=== PATIENT | female | born 1975 | race Two or more races ===

== ENCOUNTER 2021-12-05 11:51 | Emergency (ER) | payer SELFPAY ==
[~2021-12-05] VITALS: Ht 172.7 cm; Wt 104.3 kg
[2021-12-05] MEDS ORDERED: IBUP800T27 PO (16:29)
[2021-12-05] MEDS ORDERED: IBUPROFEN 800 MG TAB PO ONE (16:30)
[2021-12-05 17:44] VITALS: BP 122/74
== END 2021-12-05 18:45 | disposition home or self-care (01) ==
LOC: ER 11:51
DX: S46.911A Strain of unspecified muscle, fascia and tendon at shoulder and upper arm level, right arm, initial encounter (principal); I10 Essential (primary) hypertension; X58.XXXA Exposure to other specified factors, initial encounter; Y93.89 Activity, other specified; Y92.89 Other specified places as the place of occurrence of the external cause; Y99.8 Other external cause status
CPT/HCPCS: 73030; 73060

== ENCOUNTER 2023-11-10 14:02 | Emergency (ER) | payer MEDICAID, OTHER ==
[~2023-11-10] VITALS: Ht 172.7 cm; Wt 103.0 kg
[~2023-11-10 14:02] MED LIST: IBUP-1456 PO
[2023-11-10 15:22] VITALS: BP 112/63; PULSE 60; RESP 20; TEMP 97.6; O2SAT 98
[2023-11-10] MEDS ORDERED: IBUP-1456 PO (15:26)
[2023-11-10] MEDS ORDERED: BACL10TA PO (15:26)
[2023-11-10] MEDS ORDERED: HYDROcodone-ACET 5/325MG TAB PO ONE (15:30)
[2023-11-10] MEDS: KETOROLAC TROMETH 60MG/2ML VIAL IM ONE (15:42)
== END 2023-11-10 16:00 | disposition home or self-care (01) ==
LOC: ER 14:02
DX: S39.012A Strain of muscle, fascia and tendon of lower back, initial encounter (principal); I10 Essential (primary) hypertension; X58.XXXA Exposure to other specified factors, initial encounter; Y93.89 Activity, other specified; Y92.89 Other specified places as the place of occurrence of the external cause; Y99.8 Other external cause status
CPT/HCPCS: 96372; 99283; J1885

== ENCOUNTER 2025-03-23 00:17 | Emergency (ER) | payer BC, MEDICAID ==
[~2025-03-23] VITALS: Ht 172.7 cm; Wt 92.3 kg
[~2025-03-23 00:17] MED LIST changes: +BACL10TA PO
[2025-03-23 00:32] VITALS: BP 156/87; PULSE 65; RESP 22; TEMP 97.7; O2SAT 100
[2025-03-23] MEDS: HYDROcodone-ACET 10/325MG TAB PO ONE (00:45)
--- NOTE | 2025-03-23 00:48 | ED.PDOC ---
History of Present Illness HPI Comments 49-year-old female who came to ER for right lower dental pain for the past two days that has worsened over the past few hours. Patient states she had a dental procedure recently, currently complaining of dental pain at right lower pre/molar area. Claims there is an abscess. Self medicated with Ibuprofen 800 mg but offered no relief. Patient was hypertensive and mildly tachypneic at arrival. Chief Complaint: Tooth Pain Time Seen by MD: 00:46 Primary Care Provider: LETICIA Julio Notes: Nurses Notes Allergies: Coded Allergies: NO KNOWN ALLERGIES (Unverified , 12/05/21) Home Meds Active Scripts Baclofen (Baclofen) 10 Mg Tab, 10 MG PO BID, #20 TAB Prov:LARRY LACEY 11/10/23 Ibuprofen (Ibuprofen) 800 Mg Tab, 1 TAB PO TID, #30 TAB Prov:LARRY LACEY 11/10/23 Ibuprofen (Ibuprofen) 800 Mg Tab, 1 TAB PO TID PRN, #30 TAB 0 Refills Prov:LAVERN REED 12/05/21 Information Source: Patient, Spouse Mode of Arrival: Ambulatory Severity: Moderate Timing: Hours Duration: Since onset Prehospital treatment: None Past Medical History PAST MEDICAL HISTORY: HTN Past Medical History (Other): Recent dental procedures Surgical History: Denies all surgeries [employer] History: No Pertinent [employer] History Family History Family History: Reviewed,noncontributory to illness Social History Smoker: Non-Smoker Alcohol: Denies ETOH Use Drugs: Denies Drug Use Lives In: Home Constitutional: denies: chills, diaphoresis, fatigue, fever, malaise, sweats, weakness, others EENTM: reports: mouth pain (Right lower dental pain); denies: blurred vision, double vision, ear bleeding, ear discharge, ear drainage, ear pain, ear ringing, eye pain, eye redness, hearing loss, mouth swelling, nasal discharge, nose bleeding, nose congestion, nose pain, photophobia, tearing, throat pain, throat swelling, voice changes, others Respiratory: denies: cough, hemoptysis, orthopnea, SOB at rest, shortness of breath, SOB with excertion, stridor, wheezing, others Cardiovascular: denies: chest pain, dizzy spells, diaphoresis, Dyspnea on exertion, edema, irregular heart beat, left arm pain, lightheadedness, p alpitations, PND, syncope, others Gastrointestinal: denies: abdomen distended, abdominal pain, blood streaked bowels, constipated, diarrhea, dysphagia, difficulty swallowing, hematemesis, melena, nausea, poor appetite, poor fluid intake, rectal bleeding, rectal pain, vomiting, others Genitourinary: denies: abnormal vagina bleeding, burning, dyspareunia, dysuria, flank pain, frequency, hematuria, incontinence, pain, , vagina discharge, urgency, others Neurological: denies: dizziness, fainting, headache, left sided numbness, left sided weakness, numbness, paresthesia, pre-existing deficit, right sided numbness, right sided weakness, seizure, speech problems, tingling, tremors, weakness, others Musculoskeletal: denies: back pain, gout, joint pain, joint swelling, muscle pain, muscle stiffness, neck pain, others Integumetry: denies: bruises, change in color, change in hair/nails, dryness, laceration, lesions, lumps, rash, wounds, others Allergic/Immunocompromised: denies: Difficulty Healing, Frequent Infections, Hives, Itching, others Hematologic/Lymphatic: denies: anemia, blood clots, easy bleeding, easy bruising, swollen glands, others Endocrine: denies: excessive hunger, excessive sweating, excessive thirst, excessive urination, flushing, intolerance to cold, intolerance to heat, unexplained weight gain, unexplained weight loss, others Psychiatric: denies: anxiety, bipolar disorder, depression, hopeless, panic disorder, schizophrenia, sleepless, suicidal, others Physical Exam General Appearance: Moderate Distress (Due to right-sided lower dental pain), Normal HEENT: Pharynx Normal, TMs Normal, Other (Patient complains of pain throughout tooth 29, 30 and 31. No definitive edema or erythema noted. Patient complains of swelling to the mandible on the right side, but unable to definitively appreciate that concern.) Neck: Full Range of Motion, Non-Tender, Normal, Normal Inspection Respiratory: Chest Non-Tender, Lungs Clear, No Accessory Muscle Use, No Respiratory Distress, Normal Breath Sounds Cardiovascular: No Edema, No JVD, No Murmur, No Gallop, Normal Peripheral Pulse s, Regular Rate/Rhythm Breast Exam: Deferred Gastrointestinal: No Organomegaly, Non Tender, No Pulsatile Mass, Normal Bowel Sounds, Soft Genitalia: Deferred Pelvic: Deferred Rectal: Deferred Extremities: No calf tenderness, Normal capillary refill, Normal inspection, Normal range of motion, Non-tender, No pedal edema Musculoskeletal : Apperance: Normal Neurologic: Alert, No Motor Deficits, Normal Affect, Normal Mood, No Sensory Deficits Cerebellar Function: Normal Reflexes: Normal Skin: Dry, Normal Color, Warm Lymphatic: No Adenopathy Was a procedure done? Was a procedure done?: No Differential Dx Considerations may include: Dental pain, dental caries, dentoalveolar abscess X-Ray, Labs, Meds, VS Vital Signs Date Time Temp Pulse Resp B/P (MAP) Pulse Ox O2 Delivery O2 Flow Rate FiO2 03/23/25 00:32 97.7 65 22 156/87 (110) 100 97.7 X-Ray, Labs, Meds, VS Comment Patient was provided with a pain medication to address her dental concerns. Advised patient that she will need to follow up with her dentist for continued evaluation of pain concerns related to recent procedures. Time of 1ST Reevaluation: :10 Reevaluation 1ST: Improved Consultation: PCP, Other (Dentist) Patient Education/Counseling: Diagnosis, Treatment Family Education/Counseling: Diagnosis, Treatment, No Family Present SEPSIS Sepsis Screen Date sepsis recognized/suspect: Mar 23, 2025 Time Sepsis recognized/suspect: 0025 Recent Procedure: No On Antibiotic Therapy: No Respiratory Rate >20: No Heart Rate >90: No Temp<36 C (96.8 F) or >38.3 C: No SBP <90 or MAP <65 mmHG: No New Acute Mental Status Change: No Is the patient on CPAP, BIPAP,: No Vital Signs Date Time Temp Pulse Resp B/P (MAP) Pulse Ox O2 Delivery O2 Flow Rate FiO2 03/23/25 00:32 97.7 65 22 156/87 (110) 100 97.7 Departure 1 Departure Time of Disposition: 01:10 Impression: Primary Impression: Pain, dental Disposition: HOME / SELF CARE / HOMELESS Condition: Stable Additional Instructions: Advised patient to continue using the Augmentin that she has a available as well as pain medication as needed. Patient needs to follow up with her dentist for evaluation and long-term management of dental pain concerns. e-Prescriptions Hydrocodone-Acetaminophen (Hydrocodone Bitartrate/AC 10-325 mg) 1 Tab Tab 1 TAB PO Q8HP PRN, #10 TAB Prov: PATRICIA RODRIGUEZ PAC 03/23/25 Discharged With: Self, Spouse Critical Care Note Critical Care Time?: No Stability Stability form required: No Heart Score Heart Score: Heart Score Response (Comments) Value History N/A 0 EKG N/A 0 Age N/A 0 Risk Factors N/A 0 Troponin N/A 0 Total 0 I personally scribed for HAZEL PEREIRA MD ([email or web address]) on 03/23/25 at 00:48. Electronically submitted by Waqas Lux ([facility]). HAZEL PEREIRA MD Mar 23, 2025 00:48 PATRICIA RODRIGUEZ PAC Mar 23, 2025 01:12
[2025-03-23] MEDS ORDERED: HYDR-4798 PO (01:11)
== END 2025-03-23 01:30 | disposition home or self-care (01) ==
LOC: ER 00:17
DX: K08.89 Other specified disorders of teeth and supporting structures (principal); I10 Essential (primary) hypertension; Z79.1 Long term (current) use of non-steroidal anti-inflammatories (NSAID); Z79.899 Other long term (current) drug therapy; Z98.890 Other specified postprocedural states